=== PATIENT | male | born 1985 | race Caucasian/White ===

== ENCOUNTER 2024-02-04 15:31 | Emergency (ER) | payer MEDICAID, SELFPAY ==
[2024-02-04] VITALS (9 sets, daily range): BP systolic 116–178; BP diastolic 57–118; PULSE 86–97; RESP 18–21; TEMP 37.1; O2SAT 95–100; BMI 26.2
--- NOTE | 2024-02-04 15:35 | CT_ITS ---
PROCEDURE INFORMATION: Exam: CT Head Without Contrast Exam date and time: 02/04/2024 4:26 PM Age: 38 years old Clinical indication: Injury or trauma; Fall; Additional info: Fall, head injury TECHNIQUE: Imaging protocol: Computed tomography of the head without contrast. Radiation optimization: All CT scans at this facility use at least one of these dose optimization techniques: automated exposure control; mA and/or kV adjustment per patient size (includes targeted exams where dose is matched to clinical indication); or iterative reconstruction. COMPARISON: CT HEAD/BRAIN WO CON 02/04/2024 4:26 PM FINDINGS: Brain: There is no acute intracranial hemorrhage or abnormal extra-axial fluid collection identified. There is no intracranial mass effect or shift of midline structures. The chua-white differentiation is preserved throughout. There is no sulcal effacement. The basilar cisterns are open. Cerebral ventricles: No hydrocephalus or ventricular effacement. Paranasal sinuses: The visualized sinuses are unremarkable. Mastoid air cells: There is no mastoid effusion detected. Bones: No calvarial fracture or destructive osseous lesions are seen. Soft tissues: Unremarkable. IMPRESSION: No acute intracranial pathology identified by CT.
--- NOTE | 2024-02-04 15:35 | CT_ITS ---
PROCEDURE INFORMATION: Exam: CT Cervical Spine Without Contrast Exam date and time: 02/04/2024 4:26 PM Age: 38 years old Clinical indication: Injury or trauma; Fall; Additional info: Fall, head injury TECHNIQUE: Imaging protocol: Computed tomography of the cervical spine without contrast. Radiation optimization: All CT scans at this facility use at least one of these dose optimization techniques: automated exposure control; mA and/or kV adjustment per patient size (includes targeted exams where dose is matched to clinical indication); or iterative reconstruction. COMPARISON: CT HEAD/BRAIN WO CON 02/04/2024 4:26 PM FINDINGS: Bones: There are no anterior wedging deformities. No acute lucent fracture lines are visualized. Spinal cord: No severe central canal or neural foraminal stenosis demonstrated by CT. Teeth: Dental caries, periapical lucencies, and absent teeth are noted. Lungs: Ground-glass densities at the lung apices may reflect atelectasis or pneumonitis. Soft tissues: There is a reversal of the normal lordosis, which may be related to patient positioning, muscle spasm, or splinting. IMPRESSION: No acute cervical spinal injury demonstrated by CT.
--- NOTE | 2024-02-04 15:54 | [facility].EDGENADL ---
Discharge Plan Disposition Patient Disposition: Home, Self-Care Condition: Good Referrals Follow up/Referrals: Curtis Moreno MD [Primary Care Provider] - See instructions Activity Restrictions/Add. Instructions Additional Instructions/Restrictions: You were evaluated in the emergency department today. Your anahy will need to be removed in approximately 7 to 10 days. Please follow-up closely with your primary care provider. Return to the emergency department for new or worsening symptoms. Keep the wound clean and dry. Do not submerge under any water. Clinical Impressions Clinical Impression: Laceration of scalp, Fall Instructions Patient Instructions: DI for Laceration Repair, DI for Moderate Sedation Print Language Print Language: Citizen Of [place] Discharge ED Provider: Noa Stahl Adult HPI General Chief complaint: Wound/Laceration Stated complaint: Lac on head Time Seen by Provider: 02/04/24 15:35 Mode of Arrival: Ambulatory Source of Information: Patient Limitations: Language Barrier Description of Symptoms (Recalled from ER Triage Doc. by RN): pt to ed c/o laceration to the left scalp. family at the bedside reports pt fell and hit his head on a kitchen cabinet. denies LOC. pt is non-verbal History of Present Illness HPI narrative: This patient is a 38-year-old male with a history of cerebral palsy who is nonverbal presenting to the emergency department for evaluation with concern for head injury after a fall. Family reports that the patient was walking on his tiptoes, as usual, when he fell and hit the left parietal aspect of his scalp on the kitchen cabinet. He has a laceration from the injury. He did not lose consciousness and is otherwise been acting his usual self since then. Patient does not contribute to history given his nonverbal status. Family is unsure when his last tetanus shot was. No other concerns or complaints noted at this time. Related Data Allergies Allergy/AdvReac Type Severity Reaction Status Date / Time No Known Allergies Allergy Verified 02/04/24 15:51 [facility] Disclaimer: The information contained in this section may have been updated after the patient was seen, as this information can be updated by other users. Social History Smoking Status: Never smoker alcohol intake: never current occupational status: unemployed Travel in the last 8 weeks: None ROS Obtained: Yes All systems reviewed & no additional complaints except as documented Physical Exam General General appearance: alert Comment: At his baseline per family Head Head exam: normocephalic and other (5 cm linear laceration to the left parietal scalp that is hemostatic. No significant hematoma. No palpable step-offs or deformities.) Eye Eye exam: Present normal appearance, PERRL and EOMI ENT ENT exam: Present normal exam, normal oropharynx, mucous membranes moist and normal external ear exam Neck Neck exam: Present normal inspection and trachea midline; Absent tenderness Chest Chest inspection: Present normal inspection and symmetric chest wall rise; Absent tenderness Respiratory Respiratory exam: Present normal lung sounds bilaterally; Absent respiratory distress, wheezes, stridor or accessory muscle use Cardiovascular Cardiovascular exam: Present regular rate and normal rhythm Abdominal Exam Abdominal exam: Present soft; Absent distention, tenderness or guarding Extremities Exam Extremities exam: Present normal inspection, full ROM and normal capillary refill; Absent tenderness or edema Back Exam Back exam: Present normal inspection and full ROM; Absent tenderness Neurological Exam Neurological exam: Present alert and other (At his baseline per family) Skin Skin exam: Present warm and dry Medical Decision Making Medical Records Medical records reviewed: Yes I reviewed the patient's medical records. [facility]ama Inquiry Pt receiving controlled substance: No Vital Signs: 02/04/24 15:37 02/04/24 16:26 02/04/24 16:40 Temperature 98.8 F Temperature Source Temporal Artery Scan Pulse Rate 87 Pulse Rate [Left Radial] 97 H 89 Respiratory Rate 20 Blood Pressure 178/118 H Blood Pressure [Right Arm] 152/97 H 158/78 H Blood Pressure Mean [Right Arm] 115 104 Blood Pressure Source Blood Pressure Position 02 Sat by Pulse Oximetry 97 97 99 Oxygen Delivery Method Room Air Room Air Nasal Cannula Oxygen Flow Rate (LPM) 2 02/04/24 16:45 02/04/24 16:50 02/04/24 16:55 Temperature Temperature Source Pulse Rate Pulse Rate [Left Radial] 90 91 H 92 H Respiratory Rate Blood Pressure Blood Pressure [Right Arm] 138/74 116/82 128/74 Blood Pressure Mean [Right Arm] 95 93 92 Blood Pressure Source Blood Pressure Position 02 Sat by Pulse Oximetry 99 100 99 Oxygen Delivery Method Nasal Cannula Nasal Cannula Room Air Oxygen Flow Rate (LPM) 2 2 02/04/24 16:57 02/04/24 16:59 02/04/24 17:18 Temperature 98.8 F Temperature Source Oral Pulse Rate 86 Pulse Rate [Left Radial] 88 89 Respiratory Rate 21 18 Blood Pressure 131/87 Blood Pressure [Right Arm] 118/57 L 120/73 Blood Pressure Mean [Right Arm] 77 88 Blood Pressure Source Automatic Cuff Blood Pressure Position Supine 02 Sat by Pulse Oximetry 100 99 Oxygen Delivery Method Nasal Cannula Room Air Room Air Oxygen Flow Rate (LPM) 2 Lab Data Lab results reviewed: Yes I reviewed the patient's lab results. Orders (Tests/Meds): ED MEDICATIONS Discontinued Medications Generic Name Dose Route Start Last Admin Trade Name Sue PRN Reason Stop Dose Admin Ketamine HCl 300 mg 02/04/24 15:53 02/04/24 16:08 Ketamine 50mg/1ml Syringe IM 02/04/24 15:54 Not Given ONCE ONE Ketamine HCl 80 mg 02/04/24 16:15 02/04/24 16:41 Ketamine 50mg/1ml Syringe IV 02/04/24 16:16 60 mg ONCE ONE Administration Ondansetron HCl 4 mg 02/04/24 15:53 02/04/24 16:15 Ondansetron 4mg/2ml Vial IM 02/04/24 15:54 4 mg ONCE ONE Administration Ondansetron HCl 4 mg 02/04/24 16:18 02/04/24 16:41 Ondansetron 4mg/2ml Vial IV 02/04/24 16:19 Not Given ONCE ONE Tetanus/Reduced Diphtheria/Acell Pertussis 0.5 ml 02/04/24 15:35 02/04/24 16:08 Tet/Diphth/Pert-Adult 0.5ml Syringe IM 02/04/24 15:36 0.5 ml .ONCE ONE Administration ORDERS Category Date Time Status CT cervical spine wo con Stat Cat Scan 02/04/24 15:[address] head/brain wo con Stat Cat Scan 02/04/24 15:35 Completed Medical Decision Narrative: In summary, this patient is a 38-year-old male presenting to the Emergency Department for evaluation of head injury after a fall. Differential diagnoses considered include but are not limited to scalp laceration, abrasion, hematoma, skull fracture, intracranial hemorrhage, C-spine fracture. Ruling out the most morbid conditions drove assessment. It should be noted patient's history includes CP with nonverbal status which may or may not be at goal therapy. This complicates all aspects of care by increasing patient's risk for morbidity. On exam, the patient is lying in bed in no acute distress with reassuring vital signs on cardiac telemetry. He has a laceration with no significant hematoma, step-off, or deformity. Tdap booster was administered. I recommended obtaining CT scan of the head and C-spine given patient's not able to provide a reliable history or exam in the setting of head injury. Family is agreeable with this. They advise that we would have to sedate him for CT. After risk versus benefit was explained, family consented to sedation for the purpose of CT scan. Decision was made to administer medications intramuscularly, as patient will be very difficult to get an IV on because of poor cooperation. Dose slightly less than 4 mg/kg of ketamine intramuscularly was administered. He was also given IM Zofran and Tdap booster. Workup included CT head and cervical spine without IV contrast. I independently interpreted CT scans prior to the radiologist read and noted no obvious fracture or intracranial hemorrhage. Please see their read for final interpretation. Patient tolerated procedural sedation very well. No complications noted. He was monitored throughout CT scan by myself. He returned to his preprocedural baseline, and family felt comfortable discharging him. His scalp was repaired with anahy. Please see procedure notes for both of these for further documentation. Afterward, patient was deemed to be appropriate for discharge. Instructions for suture removal, strict return precautions, and instructions for close outpatient follow-up were given at time of discharge. Procedures Risk/Benefits of Procedure(s) Were Explained: Yes Laceration Laceration 1: Site: scalp Side (If applicable): left Size (cm): 5 Description: linear Depth: simple, single layer Pre-repair: wound explored, irrigated extensively and deep structures intact Skin layer closed with: other (anahy x 6) Number of sutures: 6 Technique: simple, interrupted Procedural Sedation Presedation Evaluation: Patient is lying in bed in no acute distress with normal vital signs on cardiac telemetry. A heart and lung assessment was performed on this patient at: 15:59 Mallampati Score:: Class II Indication: diagnostic imaging procedure ASA Class: I Preparation: technical sourcing recruiter applied, pulse oximeter, capnometry used, supplemental O2 applied, reversal agents at bedside, suction/airway equipment at bedside and IV secured Ketamine: IV Ketamine dose (mg): 60 Patient Tolerated Procedure: well and no complications Complications: none Critical Care Critical Care Time Critical Care Time: No
[2024-02-04] MEDS: TET/DIPHTH/PERT-ADULT 0.5ML SYRINGE 0.5 ML IM (16:08)
[2024-02-04] MEDS: ONDANSETRON 4MG/2ML VIAL 4 MG IM (16:15)
[2024-02-04] MEDS: KETAMINE 50MG/1ML SYRINGE 80 MG IV (16:41)
== END 2024-02-04 17:25 | disposition home or self-care (01) ==
LOC: ER 17:29
PROVIDERS: Emergency Provider Emergency Medicine; PCP Internal Medicine Adolescent Medicine
DX: S01.01XA Laceration without foreign body of scalp, initial encounter (principal); G80.9 Cerebral palsy, unspecified; F80.9 Developmental disorder of speech and language, unspecified; Z23 Encounter for immunization; W01.190A Fall on same level from slipping, tripping and stumbling with subsequent striking against furniture, initial encounter
CPT/HCPCS: 12002; 99152; 70450; 72125; 90471; 90715; 96372; 99285; J2405

== ENCOUNTER 2024-10-27 14:19 | Emergency (ER) | payer MEDICAID, SELFPAY ==
--- NOTE | 2024-10-27 14:15 | HMH.EDGENADL ---
Discharge Plan Disposition Patient Disposition: Home, Self-Care Condition: Fair Referrals Follow up/Referrals: Curtis Moreno MD [Primary Care Provider] - See instructions Activity Restrictions/Add. Instructions Additional Instructions/Restrictions: You should receive a call from case management tomorrow regarding help with placement at [facility]. If you do not please contact the case management department here tomorrow. If he has any new or worsening signs or symptoms please follow-up with your PCP or return to the ER as needed. Clinical Impressions Clinical Impression: Fall Qualifiers: Encounter type: initial encounter Qualified Code(s): W19.XXXA - Unspecified fall, initial encounter Print Language Print Language: Lithuanian Discharge ED Provider: Luis Miguel Prabhakar General Adult HPI <KRISTYN Garcia - Last Filed: 10/27/24 18:48> General Chief complaint: Fall Stated complaint: Fall Time Seen by Provider: 10/27/24 14:23 History of Present Illness HPI narrative: Patient presents via EMS for evaluation of a fall and right lower extremity injury. Patient's mother and grandmother are present at the time of my exam as patient himself is nonverbal and has cerebral palsy and parkinsonism. According to the patient's mother he fell in the bathroom on Sunday and initially did not suffer any injury. At baseline he requires assistance for all of his activities of daily living including walking but normally he can walk with assistance. Since Sunday he has been not ambulating due to pain about the right hip according to the mother. He did not lose consciousness has had no nausea no vomiting chest pain shortness of breath fever chills hemoptysis hematochezia melena nausea vomiting diarrhea. Related Data Allergies Allergy/AdvReac Type Severity Reaction Status Date / Time No Known Allergies Allergy Verified 02/04/24 15:51 PFSH <KRISTYN Garcia - Last Filed: 10/27/24 18:48> [facility] Disclaimer: The information contained in this section may have been updated after the patient was seen, as this information can be updated by other users. Social History (Updated 02/04/24 @ 23:09 by Noa Stahl DO) Smoking Status: Never smoker alcohol intake: never current occupational status: unemployed Travel in the last 8 weeks?: None Have you lived/traveled outside [place] in past 30 days?: No Contact w/someone who lives/traveled outside US past 30 days?: No Exposure to someone with infectious disease in past 14 days?: No Do you have a fever (greater than 100.4 F or 38 C)?: No Have you tested positive for COVID-19?: No Exposed to someone with COVID-19 in past 14 days?: No Do you have a sore throat?: No Do you have a cough?: No Do you have any weakness?: No Do you have any diarrhea?: No Are you experiencing any unusual bleeding?: No Do you have any muscle aches/pain?: No Do you have any abdominal pain?: No Are you experiencing loss of taste or smell?: No <KRISTYN Garcia - Last Filed: 10/27/24 18:48> ROS Obtained: Yes Systems reviewed as appropriate & no additional complaints except as documented Physical Exam <KRISTYN Garcia - Last Filed: 10/27/24 18:48> General General appearance: alert Head Head exam: atraumatic and normal inspection Eye Eye exam: Present normal appearance and PERRL Respiratory Respiratory exam: Present normal lung sounds bilaterally Cardiovascular Cardiovascular exam: Present tachycardia Neurological Exam Neurological exam: Absent alert (Patient is awake and at his normal functional baseline according to his family but is not verbal nor does he follow commands) Medical Decision Making <KRISTYN Garcia - Last Filed: 10/27/24 18:48> Medical Records Medical records reviewed: Yes I reviewed the patient's medical records. Screening: Per USPSTF and CDC recommendations, given the prevalence of disease in our region, it is our hospital?s policy to screen for HIV and viral Hepatitis for all patients aged 18 and over and those with ongoing risk factors. Usama Inquiry Pt receiving controlled substance: No Vital Signs: 10/27/24 14:26 10/27/24 15:00 10/27/24 17:52 Temperature 98.0 F Temperature Source Oral Pulse Rate 91 H 72 Pulse Rate [Radial] 110 H Respiratory Rate 18 Blood Pressure 132/84 105/68 L Blood Pressure [Right Arm] 138/81 Blood Pressure Mean 89 78 Blood Pressure Mean [Right Arm] 100 Blood Pressure Source [Right Arm] Automatic Cuff Blood Pressure Position [Right Arm] Supine 02 Sat by Pulse Oximetry 95 90 L 94 L Oxygen Delivery Method Room Air 10/27/24 18:09 Temperature 98.0 F Temperature Source Pulse Rate 72 Pulse Rate [Radial] Respiratory Rate 19 Blood Pressure 105/68 L Blood Pressure [Right Arm] Blood Pressure Mean Blood Pressure Mean [Right Arm] Blood Pressure Source [Right Arm] Blood Pressure Position [Right Arm] 02 Sat by Pulse Oximetry Oxygen Delivery Method Lab Data Lab results reviewed: Yes I reviewed the patient's lab results. Orders (Tests/Meds): ORDERS Category Date Time Status Consult to Case Management [CONS] Routine Cons 10/27/24 16:24 Active XR hip RT 2-3V w/pelvis Stat Exams 10/27/24 14:23 Completed Medical Decision Narrative: In summary patient is a 39-year-old male with who presents to the emergency department for evaluation of of a reported fall and right lower extremity injury. Patient is initially normotensive with a blood pressure 138/81 tachycardic with a heart rate of 110 with sinus tachycardia on the bedside monitor breathing 18 times a minute satting at 95% on room air upon arrival, afebrile at 98. Physical exam reveals a well-nourished well-developed 39-year-old male who does not appear to be in acute distress. He is awake but does not follow commands. He is moving all 4 extremities independently and fully. Cursory exam reveals no shortening external rotation. He is neurovascularly intact distally. Palpation of the right lower extremity reveals no palpable bony deformities. Secondary survey reveals no contusions abrasions deformities palpable bony deformities. Patient is at his functional baseline according to his family.. Differential diagnosis includes contusion versus fracture. I had a shared decision-making discussion with the mother and the grandmother regarding the extent of the WILHELM. As CAT scan or advanced imaging require sedation initially offered to do plain film x-rays of the pelvis and right hip and they were agreeable. If we found any abnormalities that we could expand into other scanning. Again they agreed. Initial workup will be conducted with pelvis with right hip plain films. Initial interventions were considered however patient is moving all 4 extremities independently and has no evidence of fever or pain thus initial interventions deferred for now. Initial workup reviewed by me and my informal interpretation of his plain film imaging shows no evidence of acute bony injury.. Upon repeat evaluation I requested that myself and and Venkata Harp the epidemiology investigator assisted the patient in ambulating. Patient was able to bear weight did not show any evidence of favoring his right lower extremity and while he does walk on his tiptoes he is walking in his baseline with assistance.. Given this again had an interactive discussion about patient presentation and their goals of care. Mom then stated that he has become total care and due to her own medical conditions as well as her mother they are unable to care for the patient. They were interested in placement. I then had a interactive discussion with with hospital medicine regarding patient presentation WILHELM and management and they in turn had an interactive discussion with the hospital social science instructor. As we did not find any acute criteria for hospitalization hospital medicine declined to admit however recommended a consult to case management to help assist the patient's family with placement possibly in [facility]. I then returned to have interact discussion along with Dr. Prabhakar at the patient's bedside with the mother and the grandmother. As his initial complaint was inability to bear weight on his right lower extremity had resolved while in the ER and no other acute injury or problem was identified other than their inability to care for the patient he would be appropriate for discharge with assistance with case management to assist in establishing placement. The patient's mother and grandmother were unhappy with that decision as they felt like he had a failure to thrive and they could not care for him at home. We offered to try to arrange transport via ambulance back to their house to assist with him getting back in their home however they elected to leave before we can arrange that. I did make a consult to case management as Dr. Martinez requested for assistance in helping the family place the patient in a nursing home facility. As we did not identify any emergent or life-threatening condition and addressed his initial complaint and did not find a fracture patient was appropriate for discharge with the aforementioned planned of case management to assist in long-term placement as his needs have become greater than their ability to provide. We offered to contact Dr. Martinez to discuss admission with them however they declined. <Luis Miguel Prabhakar MD - Last Filed: 10/28/24 15:39> Vital Signs: 10/27/24 14:26 10/27/24 15:00 10/27/24 17:52 Temperature 98.0 F Temperature Source Oral Pulse Rate 91 H 72 Pulse Rate [Radial] 110 H Respiratory Rate 18 Blood Pressure 132/84 105/68 L Blood Pressure [Right Arm] 138/81 Blood Pressure Mean 89 78 Blood Pressure Mean [Right Arm] 100 Blood Pressure Source [Right Arm] Automatic Cuff Blood Pressure Position [Right Arm] Supine 02 Sat by Pulse Oximetry 95 90 L 94 L Oxygen Delivery Method Room Air 10/27/24 18:09 Temperature 98.0 F Temperature Source Pulse Rate 72 Pulse Rate [Radial] Respiratory Rate 19 Blood Pressure 105/68 L Blood Pressure [Right Arm] Blood Pressure Mean Blood Pressure Mean [Right Arm] Blood Pressure Source [Right Arm] Blood Pressure Position [Right Arm] 02 Sat by Pulse Oximetry Oxygen Delivery Method Orders (Tests/Meds): ORDERS Category Date Time Status Consult to Case Management [CONS] Routine Cons 10/27/24 16:24 Active XR hip RT 2-3V w/pelvis Stat Exams 10/27/24 14:23 Completed Medical Decision Narrative: In summary patient is a 39-year-old male with who presents to the emergency department for evaluation of of a reported fall and right lower extremity injury. Patient is initially normotensive with a blood pressure 138/81 tachycardic with a heart rate of 110 with sinus tachycardia on the bedside monitor breathing 18 times a minute satting at 95% on room air upon arrival, afebrile at 98. Physical exam reveals a well-nourished well-developed 39-year-old male who does not appear to be in acute distress. He is awake but does not follow commands. He is moving all 4 extremities independently and fully. Cursory exam reveals no shortening external rotation. He is neurovascularly intact distally. Palpation of the right lower extremity reveals no palpable bony deformities. Secondary survey reveals no contusions abrasions deformities palpable bony deformities. Patient is at his functional baseline according to his family.. Differential diagnosis includes contusion versus fracture. I had a shared decision-making discussion with the mother and the grandmother regarding the extent of the WILHELM. As CAT scan or advanced imaging require sedation initially offered to do plain film x-rays of the pelvis and right hip and they were agreeable. If we found any abnormalities that we could expand into other scanning. Again they agreed. Initial workup will be conducted with pelvis with right hip plain films. Initial interventions were considered however patient is moving all 4 extremities independently and has no evidence of fever or pain thus initial interventions deferred for now. Initial workup reviewed by me and my informal interpretation of his plain film imaging shows no evidence of acute bony injury.. Upon repeat evaluation I requested that myself and and Venkata Harp the epidemiology investigator assisted the patient in ambulating. Patient was able to bear weight did not show any evidence of favoring his right lower extremity and while he does walk on his tiptoes he is walking in his baseline with assistance.. Given this again had an interactive discussion about patient presentation and their goals of care. Mom then stated that he has become total care and due to her own medical conditions as well as her mother they are unable to care for the patient. They were interested in placement. I then had a interactive discussion with with hospital medicine regarding patient presentation WILHELM and management and they in turn had an interactive discussion with the hospital social science instructor. As we did not find any acute criteria for hospitalization hospital medicine declined to admit however recommended a consult to case management to help assist the patient's family with placement possibly in [facility]. I then returned to have interact discussion along with Dr. Prabhakar at the patient's bedside with the mother and the grandmother. As his initial complaint was inability to bear weight on his right lower extremity had resolved while in the ER and no other acute injury or problem was identified other than their inability to care for the patient he would be appropriate for discharge with assistance with case management to assist in establishing placement. The patient's mother and grandmother were unhappy with that decision as they felt like he had a failure to thrive and they could not care for him at home. We offered to try to arrange transport via ambulance back to their house to assist with him getting back in their home however they elected to leave before we can arrange that. I did make a consult to case management as Dr. Martinez requested for assistance in helping the family place the patient in a nursing home facility. As we did not identify any emergent or life-threatening condition and addressed his initial complaint and did not find a fracture patient was appropriate for discharge with the aforementioned planned of case management to assist in long-term placement as his needs have become greater than their ability to provide. We offered to contact Dr. Martinez to discuss admission with them however they declined. I was consulted by the DARIA, and we discussed the complexity of the problems being addressed. I approved the treatment and management plan for this patient's care in the Emergency Department, thus performing a substantive portion of the medical decision making. Very difficult conversations had with patient family. It sounds like patient was having difficulty ambulating the way that he normally does after a fall. States that he was not putting any weight down on his right lower extremity. On my evaluation, patient had already ambulated with support of staff. Independent interpretation of patient's workup with negative hip films. Results were relayed to patient's family, they were outwardly upset prior to even disposition discussions. Because of this, social work was contacted at the request of hospital medicine for placement given no emergent need for observation or hospitalization. Social work able to get patient placed tomorrow, 5/6 at local halfway. This was discussed with family. Also frustrated with this. They stated just throw him in the car, among other emotionally charged statements. I tried to have discussion with family regarding condolences and, and having been a caregiver myself, I understand their frustrations with the situation. It was explained that patient has had gradual decline and it seems as though family is requesting respite stay. They state that she is an RN at another hospital and that he needs to be admitted for various reasons, including a new complaint of failure to thrive. Patient has moist mucous membranes, stable vital signs and last weight with which unable to compare was nearly a year ago and patient is 63 kg today as compared to 80 then. Discussion also had about this and family states that he is unable to tolerate most solid food, so has a special device from which he needs to feed in order to prevent aspiration, I feel this is likely part of what is relating to his weight loss. I discussed calling the hospitalist to have formal discussion with them in terms of a respite stay, but without having admittable diagnosis or acute change from patient's baseline, likely that it would not be covered by insurance as patient currently at baseline. Family becoming increasingly agitated stating they are going to take him to another hospital, etc. Declined any further conversation with the hospitalist because they just want to take him back home and deal with it there. I feel family is capable and more than able to make this decision and I feel patient is also stable for home-going, especially knowing that social work able to get patient placed in a halfway in less than 24 hours. I also stated that I would call her ambulance/transport team to see if they could help transport patient back home, family states that they do not want to wait on an ambulance and would rather just take him home in their own car. I feel they are all more than able to make this choice and patient is also stable for private vehicle transport. At the end of the day, patient family incredibly disgruntled, I do understand that this is a difficult job and tried to sympathize with them having in similar situation myself, they were not being reasonable or understanding and resorted to verbal escalations and swearing. Unable to reach common ground with patient family, but I feel he is more than appropriate for home-going. He was discharged in stable condition with outpatient management arranged. Luis Miguel Prabhakar MD Critical Care <KRISTYN Garcia - Last Filed: 10/27/24 18:48> Critical Care Time Critical Care Time: No
--- NOTE | 2024-10-27 14:23 | XR_ITS ---
FINAL REPORT CLINICAL HISTORY: Fall on Sunday, will not bear weight FINDINGS: An AP view of the pelvis and a frog leg view of the right hip were obtained. There is no acute fracture or dislocation. Joint space is preserved. Remaining osseous pelvis is without acute abnormality. There is a very large amount of retained stool in the rectum concerning for rectal fecal impaction. IMPRESSION: No acute osseous abnormality of the right hip. Reviewed, Interpreted and Dictated by Lili Kendrick MD Transcribed by Karuna Cardoso Authenticated and [facility]
[2024-10-27 14:26] VITALS: BP 138/81; PULSE 110; RESP 18; TEMP 36.7; O2SAT 95; BMI 21.2
[2024-10-27 15:00] VITALS: BP 132/84; PULSE 91; O2SAT 90
--- NOTE | 2024-10-27 15:00 | PC.NURSE ---
rounded on patient and obtained vitals. patient refused to keep BP cuff and pulse ox on at this time. no complaints reported
--- NOTE | 2024-10-27 16:30 | PC.NURSE ---
Bebeto and Venkata at bedside attempting to ambulate patient at this time to access baseline. they stated the patient was able to ambulate with both of them his side and that he remained on his tiptoes.
--- NOTE | 2024-10-27 17:15 | PC.NURSE ---
Douglas mays informed me that the patients family was standing outside of the room waiting on discharged paperwork and seemed upset. This nurse went to pt bedside where the pt family member stated they were upset that they were being discharged. they stated that they understood they would have possible placement tomorrow but dont know what they can do tonight. made aware
--- NOTE | 2024-10-27 17:36 | PC.NURSE ---
House Supp. at bedside to speak with patient family
--- NOTE | 2024-10-27 17:40 | PC.NURSE ---
Pt mother stated she was worried about the patient getting dinner because he had a puree diet and that he needed to be on a close if he was admitted. I informed them that i would do my best to get him a tray at this time but i was unsure about the details of the admission as we are still waiting to see what the hospitalist says.
--- NOTE | 2024-10-27 17:43 | PC.NURSE ---
called dietary who so graciously said they would throw together a puree diet tray for the patient. informed the family of this
[2024-10-27 17:52] VITALS: BP 105/68; PULSE 72; O2SAT 94
[2024-10-27 18:09] VITALS: BP 105/68; PULSE 72; RESP 19; TEMP 36.7; O2SAT 95
--- NOTE | 2024-10-28 12:50 | SW/DCPLANNER ---
Addendum entered by Faith Manuel 10/30/24 13:20: [facility]. Per patient's mother (Qian) she would like to hold on placement at this time. Original Note: I received a consult on this patient regarding family requesting placement in LTC from ED. Patient does have a diagnosis of cereal palsy, Parkinson's and is nonverbal. Per patient's mother (Qian) is she is searching for LTC at [facility]. I did inform Qian that [facility] does not currently have any male beds open. I did reach out to [facility], [facility], [facility] and [facility]: all confirmed that male beds are open. Qian is agreeable for information to be faxed to all facilities but did not want to make a commitment at this time. I also advised Qian to reach out to local [facility] W[facility] services in home. I will continue to follow up w/ Qian and facilities.
== END 2024-10-27 18:11 | disposition home or self-care (01) ==
PROVIDERS: Emergency Provider Emergency Medicine; PCP Internal Medicine Adolescent Medicine
DX: M25.551 Pain in right hip (principal); R00.0 Tachycardia, unspecified; G80.9 Cerebral palsy, unspecified; G20.C Parkinsonism, unspecified; W19.XXXA Unspecified fall, initial encounter
CPT/HCPCS: 73502; 99283